=== PATIENT | male | born 1980 | race Caucasian/White ===

== ENCOUNTER → 2022-10-27 | Outpatient (CLI) | payer OTHER ==
[2022-10-27 11:00] LABS: ALBUMIN 3.7 g/dL (3.4-5.0); BILIRUBIN,DIRECT 0.2 mg/dL (0.00-0.20); BILIRUBIN,TOTAL 0.6 mg/dL (0.1-1.0); TOTAL PROTEIN, SERUM 7.2 g/dL (6.4-8.2)
== END | disposition home or self-care (01) ==
LOC: RADPV 10:12
PROVIDERS: ATTEND Chiropractor
DX: I51.7 Cardiomegaly (principal); R07.9 Chest pain, unspecified; R00.2 Palpitations; R74.01 Elevation of levels of liver transaminase levels
CPT/HCPCS: 71046; 80076; 93005; 93306; 36415-L1; 36415-TC